=== PATIENT | female | born 1940 | race Two or more races ===

== ENCOUNTER 2020-12-17 18:44 | Emergency (ER) | payer MEDICARE, MEDICAID ==
[~2020-12-17] VITALS: Ht 154.9 cm; Wt 72.5 kg
--- NOTE | 2020-12-17 19:20 | NUR ---
PT TO CT VIA [facility] AT THIS TIME.
--- NOTE | 2020-12-17 19:40 | NUR ---
PT BACK TO ROOM FROM RADIOLOGY.
[2020-12-17 20:40] VITALS: BP 131/78
== END 2020-12-17 20:56 | disposition home or self-care (01) ==
LOC: ED 20:40
DX: S42.031A Displaced fracture of lateral end of right clavicle, initial encounter for closed fracture (principal); S09.90XA Unspecified injury of head, initial encounter; I10 Essential (primary) hypertension; E11.9 Type 2 diabetes mellitus without complications; E78.5 Hyperlipidemia, unspecified; W19.XXXA Unspecified fall, initial encounter; Y93.89 Activity, other specified; Y92.89 Other specified places as the place of occurrence of the external cause; Y99.8 Other external cause status
CPT/HCPCS: 29105; 70450; 72125; 82962; 93005; 99285